=== PATIENT | male | born 2000 | race African-American/Black ===

== ENCOUNTER 2022-02-16 10:26 | Outpatient (CLI) | payer OTHER ==
--- NOTE | 2022-02-16 15:46 | MRI Report ---
PROCEDURE: Knee LT W/O INDICATIONS: PAIN IN KNEE TECHNIQUE: Noncontrast sagittal PD fast spin echo and T2 fast spin echo with fat saturation, sagittal 3-D gradie nt sequence with fat saturation; coronal T1 spin echo and PD fast spin echo with fat saturation, and axial PD fast spin echo with fat saturation through the knee. COMPARISON: None. FINDINGS: Image quality: Excellent. Menisci: The medial and lateral menisci demonstrate normal morphology and internal signal. The meni scal root ligaments appear intact. Cruciate ligaments: There is striated appearance of anterior cruciate ligament, suspicious for partia l tear. No ACL rupturing. The posterior cruciate ligament is intact. Medial structures: The medial collateral ligament appears intact. There is mild edema secondary to contusion in the posterior medial joint capsule and semimembranosus tendon insertions. The meniscocap sular junction appears intact. Visualized portions of the pes anserinus tendons appear normal. No a bnormal bursal fluid. Lateral structures: There is partial tear of the distal lateral collateral ligament and biceps femori s tendon. Mild edema at the popliteus musculotendinous junction consistent with mild strain. There i s also mild strain of the lateral head of the gastrocnemius muscle and musculotendinous junction. Janette otibial band appears normal. Anterior structures: The quadriceps and patellar tendons appear intact. Patellar alignment is mago l. No femoral trochlear dysplasia or ventral trochlear prominence. No edema in the infrapatellar fa t pad. Bones and cartilage: No fractures. There are bone contusions involving the anterior aspect of the m edial and lateral femoral condyles, and the anterior aspect of the lateral tibial plateau, as well as both anterior and posterior aspect of the medial tibial plateau. Contusion is also noted in the fibu lar head. The cartilage of the medial and lateral femorotibial compartments, as well as the patellofemoral comp artment, appears normal in thickness. Joint space: There is a [id number] knee joint effusion. No Mcadams's cyst. Normal appearing s ynovial plicae are incidentally noted. IMPRESSION: 1. Suspect partial ACL tear. No ACL rupturing. 2. Partial tear of LCL and biceps femoris tendon. 3. Mild strain of the popliteus musculotendinous junction, and the musculotendinous junction of the l ateral head of the gastrocnemius muscle. 4. Mild contusion of the posterior medial joint capsule and the semimembranosus tendon insertions. 5. Bone contusions involving the medial and lateral femoral condyles, as well as the medial and later al tibial plateaus. 6. Mild contusion of the fibular head. 7. [id number] knee joint effusion. Reviewed by: Iris Dillard MD on 02/16/2022 3:45 PM PDT Approved by: Iris Dillard MD on 02/16/2022 3:45 PM PDT Station ID: [id number]
== END 2022-02-16 10:27 | disposition home or self-care (01) ==
LOC: DI 10:26
DX: R93.6 Abnormal findings on diagnostic imaging of limbs (principal); R93.89 Abnormal findings on diagnostic imaging of other specified body structures; S83.422A Sprain of lateral collateral ligament of left knee, initial encounter; S86.812A Strain of other muscle(s) and tendon(s) at lower leg level, left leg, initial encounter; S80.02XA Contusion of left knee, initial encounter; S70.12XA Contusion of left thigh, initial encounter; S80.12XA Contusion of left lower leg, initial encounter; M25.462 Effusion, left knee

== ENCOUNTER 2022-03-03 12:47 | Emergency (ER) | payer OTHER ==
--- NOTE | 2022-03-03 13:39 | ED Physician Documentation ---
PD HPI UPPER EXT INJURY - Stated complaint Stated Complaint: LT ARM INJ - Chief complaint Chief Complaint: Trauma Ext - History obtained from History obtained from: Patient - History of Present Illness Location: Left, Wrist Type of injury: Fall Where injury occurred: Other (playing basketball at gym.) Timing - onset: Yesterday Timing - duration: Days (1) Timing - details: Abrupt onset, Still present Improved by: Rest Worsened by: Moving, Palpating Associated symptoms: Swelling (at distal radius/wrist.). No: Weakness, Numbness Contributing factors: No: Anticoagulated Similar symptoms before: Has not had sx before Recently seen: Not recently seen Review of Systems Skin: denies: Abrasion (s), Laceration (s) Neurologic: denies: Focal weakness, Numbness PD PAST MEDICAL HISTORY - Past Medical History Cardiovascular: None Respiratory: None - Present Medications Home Medications: Ambulatory Orders Medication Instructions Recorded Confirmed Ibuprofen [Motrin] 600 mg PO TID PRN #25 tab 03/03/22 - Allergies Allergies/Adverse Reactions: Allergies Allergy/AdvReac Type Severity Reaction Status Date / Time No Known Drug Allergies Allergy Verified 03/03/22 13:01 PD ED PE NORMAL - Vitals Vital signs reviewed: Yes - General General: Alert and oriented X 3, No acute distress, Well developed/nourished - Derm Derm: Normal color, Warm and dry - Extremities Extremities: Other (left wrist with tenderness and swelling dorsal radius and end of ulna at wrist. ) - Neuro Neuro: Alert and oriented X 3, No motor deficit, No sensory deficit, Normal speech Results - Vitals Vitals: Vital Signs - 24 hr 03/03/22 03/03/22 12:55 14:46 Temperature 36.4 C L 36.6 C Heart Rate 61 58 L Respiratory 16 16 Rate Blood Pressure 127/73 120/68 O2 Saturation 100 100 - Rads (name of study) left wrist Radiology: Prelim report reviewed (subtle nondisplaced distal radial fracture. Ulnar styloid avulsion. ), See rad report Procedures - Splint (location) left wrist Splint applied by: Tech Type of splint: Fiberglass, Sugar tong Other: Patient tolerated well, No complications, Neurovascular intact, Sling provided PD MEDICAL DECISION MAKING - ED course Complexity details: reviewed results, considered differential, d/w patient Departure - Departure Disposition: 01 Home, Self Care Clinical Impression: Accidental fall Qualifiers: Encounter type: initial encounter Qualified Code(s): W19.XXXA - Unspecified fall, initial encounter Distal radius fracture, left Qualifiers: Encounter type: initial encounter Fracture type: closed Fracture morphology: Nakia' Qualified Code(s): S52.532A - Colles' fracture of left radius, initial encounter for closed fracture Condition: Stable Record reviewed to determine appropriate education?: Yes Instructions: ED Fx Colles Wrist No Redu Requ Follow-Up: JACKIE VENTURA MD [Primary Care Provider] - Lucas Beltran MD [Provider Admit Priv/Credential] - Prescriptions: Ibuprofen [Motrin] 600 mg PO TID PRN #25 tab PRN Reason: Pain Comments: You do have a nondisplaced fracture of the distal radius and a small avulsion off the ulna styloid. In more simple language, you broke your wrist. It is in good position so just needs to be protected and held in position as it heals. We typically start with a splint for the wrist in case there is increased swelling over the first few days so it does not create undue pressure within the tissue. Follow-up with primary care or orthopedics in about 3 to 5 days. At that point typically will switch over to a true cast and that we will continue for 4 weeks. Ice elevate and rest your wrist often to minimize swelling. A sling for the wrist and arm to keep it elevated. Ibuprofen 3 times daily with food for the next several days to week. Add Tylenol if needed for pains. Obviously limited to light use of the hand and fingers while this is healing. No real use of the wrist. Forms: Activity restrictions Discharge Date/Time: 03/03/22 14:49
[2022-03-03] MEDS ORDERED: IBUPROFEN 600 MG TABLET PO STA (13:46)
--- NOTE | 2022-03-03 14:17 | XRAY Report ---
PROCEDURE: Wrist 4 View LT INDICATIONS: FOOSH, wrist pain TECHNIQUE: 4 views of the wrist were acquired. COMPARISON: None FINDINGS: Bones: Subtle nondisplaced probably comminuted fracture of the distal radius, probably extending to t he articular surface. No other fractures or dislocations. No suspicious bony lesions. Scaphoid view: Scaphoid unremarkable. Soft tissues: No suspicious soft tissue calcifications. Pronator quadratus sign. IMPRESSION: Very subtle, nondisplaced distal radius fracture likely extending to the articular surface. Reviewed by: Damian Daniels MD on 03/03/2022 2:16 PM PDT Approved by: Damian Daniels MD on 03/03/2022 2:16 PM PDT Station ID: [id number]
[2022-03-03 14:49] VITALS: BP 120/68
== END 2022-03-03 14:49 | disposition home or self-care (01) ==
LOC: ED 12:47
DX: S52.532A Colles' fracture of left radius, initial encounter for closed fracture (principal); W18.30XA Fall on same level, unspecified, initial encounter; Y93.67 Activity, basketball; Y92.39 Other specified sports and athletic area as the place of occurrence of the external cause
CPT/HCPCS: 29125; 73110; 99283; A9270

== ENCOUNTER 2024-02-06 13:42 | Emergency (ER) | payer OTHER ==
[2024-02-06 14:23] VITALS: BP 141/64; O2SAT 99
== END 2024-02-06 15:05 | disposition left against medical advice (07) ==
LOC: ED 13:42
DX: Z53.21 Procedure and treatment not carried out due to patient leaving prior to being seen by health care provider (principal)